=== PATIENT | female | born 2000 | race Caucasian/White ===

== ENCOUNTER 2022-07-11 14:18 | Emergency (ER) | payer MEDICAID ==
[~2022-07-11] VITALS: Ht 157.5 cm; Wt 43.1 kg
[2022-07-11 14:54] VITALS: BP_SYST 125
--- NOTE | 2022-07-11 14:59 | NUR ---
PT TRIAGED TO WR, INSTRUCTED TO NOTIFY RN WITH ANY CHANGES
--- NOTE | 2022-07-11 16:00 | NUR ---
ER Dr.DELA LAGUERRE at bedside examining patient.
[2022-07-11] MEDS ORDERED: KETOROLAC TROMETHAMINE 60 MG/2 ML VIAL IM ONE ×2 (17:00→19:47)
[2022-07-11 17:27] LABS: BASOPHILS # (AUTO) 0.1 K/uL (0.0-0.2); BASOPHILS % (AUTO) 1.2 % (0.0-2.0); EOSINOPHILS # (AUTO) 0.1 K/uL (0.0-0.4); EOSINOPHILS % (AUTO) 1.4 % (0.0-4.0); HEMATOCRIT 41.6 % (36-48); HEMOGLOBIN 14.3 g/dL (12.0-16.0); LYMPHOCYTES # (AUTO) 2.3 K/uL (1.0-5.5); LYMPHOCYTES % (AUTO) 34.6 % (20.5-51.5); MEAN CORPUSCULAR HEMOGLOBIN 30 pg (27-31); MEAN CORPUSCULAR HGB CONC 34 % (32-36); MEAN CORPUSCULAR VOLUME 89 fL (79.0-98.0); MONOCYTES # (AUTO) 0.9 K/uL (0.0-1.0); NEUTROPHILS # (AUTO) 3.3 K/uL (1.8-7.7); NEUTROPHILS % (AUTO) 49.8 % (40.0-70.0); PLATELET COUNT (AUTO) 301 K/uL (130-430); RED BLOOD CELL COUNT(AUTO) 4.69 MIL/uL (4.2-6.2); RED CELL DISTRIBUTION WIDTH 13.4 % (9.0-15.0); WHITE BLOOD COUNT (AUTO) 6.6 K/uL (4.8-10.8)
[2022-07-11 17:54] LABS: CALCIUM 9.2 mg/dL (8.4-11.0); CREATININE 0.68 mg/dL (0.55-1.30)
[2022-07-11 17:59] LABS: TOTAL BILIRUBIN 0.2 mg/dL (0.0-1.0)
[2022-07-11] MEDS ORDERED: ONDA-8 TL (19:02)
[2022-07-11] MEDS ORDERED: IBUP-1969 PO (19:02)
--- NOTE | 2022-07-11 19:56 | NUR ---
Patient given written and verbal discharge instructions and verbalizes understanding. ER MD discussed with patient the results and treatment provided. Patient in stable condition. ID arm band removed. Rx of given. Patient educated on pain management and to follow up with PMD. Pain Scale . Opportunity for questions provided and answered. Medication side effect fact sheet provided.
== END 2022-07-11 19:55 | disposition home or self-care (01) ==
LOC: SED 14:18
DX: R55 Syncope and collapse (principal); R42 Dizziness and giddiness; R56.9 Unspecified convulsions; R11.0 Nausea; Z79.899 Other long term (current) drug therapy
CPT/HCPCS: 99285; 70450; 80053; 85025; 84484; 36415; 93005; 76376; 81025; 96372; J1885

== ENCOUNTER 2023-07-01 17:02 | Emergency (ER) | payer MEDICAID ==
[~2023-07-01] VITALS: Ht 154.9 cm; Wt 45.4 kg
[~2023-07-01 17:02] MED LIST: IBUP-1969 PO; ONDA-8 TL
[2023-07-01 17:10] VITALS: BP_SYST 147; PULSE 109; RESP 18; TEMP 98.2; O2SAT 99
[2023-07-01 17:58] LABS: PROTHROMBIN TIME 10.4 SECS (9.5-12.5)
[2023-07-01 18:12] LABS: ALANINE AMINOTRANSFERASE 20 U/L (12-78); ALBUMIN 3.8 g/dL (3.4-4.8); ANION GAP 9 (5-15); ASPARTATE AMINOTRANSFERASE 12 U/L (10-37); CALCIUM 9.5 mg/dL (8.4-11.0); CARBON DIOXIDE 26 mmol/L (23-29); CHLORIDE 104 mmol/L (98-107); CREATININE 0.64 mg/dL (0.55-1.30); GFR AFRICAN AMERICAN 147 mL/min (>90); GFR NON AFRICAN-AMERICAN 121 mL/min (>90); GLUCOSE 101 mg/dL (74-106); POTASSIUM 3.3 mmol/L (3.5-5.1); SODIUM SERUM 139 mmol/L (136-145); TOTAL BILIRUBIN 0.1 mg/dL (0.0-1.0); TOTAL PROTEIN, SERUM 7.2 g/dL (6.4-8.3); UREA NITROGEN, BLOOD 12 mg/dL (8-21)
[2023-07-01 18:32] LABS: INFLUENZA TYPE A Negative (NEGATIVE); INFLUENZA TYPE B POSITIVE (NEGATIVE)
[2023-07-01] MEDS ORDERED: NABU-140 PO (18:59)
[2023-07-01 19:04] VITALS: BP_SYST 140; PULSE 90; RESP 16; TEMP 98.2; O2SAT 99
== END 2023-07-01 19:05 | disposition home or self-care (01) ==
LOC: SED 17:02
DX: R07.89 Other chest pain (principal); R05.9 Cough, unspecified; R09.81 Nasal congestion; J45.909 Unspecified asthma, uncomplicated; Z88.5 Allergy status to narcotic agent; Z79.899 Other long term (current) drug therapy; Z20.822 Contact with and (suspected) exposure to COVID-19
CPT/HCPCS: 36415; 71045; 80053; 84484; 85610-TC; 93005; 99285

== ENCOUNTER 2023-11-27 15:22 | Emergency (ER) | payer OTHER ==
[~2023-11-27] VITALS: Ht 157.5 cm; Wt 49.9 kg
[~2023-11-27 15:22] MED LIST changes: +NABU-140 PO; +PRENATAL VITS W CA FE FA PO; +Pyridoxine Hcl PO
[2023-11-27 15:33] VITALS: BP_SYST 118; PULSE 82; RESP 16; TEMP 98.2; O2SAT 98
[2023-11-27 16:18] LABS: BASOPHILS # (AUTO) 0.1 K/uL (0.0-0.2); BASOPHILS % (AUTO) 0.6 % (0.0-2.0); EOSINOPHILS # (AUTO) 0.3 K/uL (0.0-0.4); HEMOGLOBIN 12.7 g/dL (12.0-16.0); LYMPHOCYTES # (AUTO) 3.2 K/uL (1.0-5.5); LYMPHOCYTES % (AUTO) 22.1 % (20.5-51.5); MEAN CORPUSCULAR HEMOGLOBIN 30 pg (27-31); MEAN CORPUSCULAR HGB CONC 34 % (32-36); MEAN CORPUSCULAR VOLUME 89 fL (79.0-98.0); MONOCYTES # (AUTO) 0.7 K/uL (0.0-1.0); NEUTROPHILS # (AUTO) 10.1 K/uL (1.8-7.7); NEUTROPHILS % (AUTO) 70.3 % (40.0-70.0); PLATELET COUNT (AUTO) 435 K/uL (130-430); RED BLOOD CELL COUNT(AUTO) 4.18 MIL/uL (4.2-6.2); RED CELL DISTRIBUTION WIDTH 13.1 % (9.0-15.0); WHITE BLOOD COUNT (AUTO) 14.4 K/uL (4.8-10.8)
== END 2023-11-27 18:25 | disposition home or self-care (01) ==
LOC: SED 15:22
DX: O26.892 Other specified pregnancy related conditions, second trimester (principal); Z3A.21 21 weeks gestation of pregnancy; J45.909 Unspecified asthma, uncomplicated; Z88.5 Allergy status to narcotic agent; Z79.899 Other long term (current) drug therapy
CPT/HCPCS: 36415; 76815; 84702; 85025; 86900; 86901; 99284

== ENCOUNTER 2024-03-12 22:04 | Emergency (ER) | payer OTHER ==
[~2024-03-12] VITALS: Ht 154.9 cm; Wt 49.9 kg
[2024-03-12 23:09] VITALS: BP_SYST 109; PULSE 92; RESP 18; TEMP 98.3; O2SAT 100
[2024-03-12 23:59] LABS: BASOPHILS # (AUTO) 0.1 K/uL (0.0-0.2); BASOPHILS % (AUTO) 0.5 % (0.0-2.0); EOSINOPHILS # (AUTO) 0.1 K/uL (0.0-0.4); EOSINOPHILS % (AUTO) 0.7 % (0.0-4.0); HEMATOCRIT 24.9 % (36-48); HEMOGLOBIN 8.6 g/dL (12.0-16.0); LYMPHOCYTES # (AUTO) 4.8 K/uL (1.0-5.5); LYMPHOCYTES % (AUTO) 26.2 % (20.5-51.5); MEAN CORPUSCULAR HEMOGLOBIN 30 pg (27-31); MEAN CORPUSCULAR HGB CONC 34 % (32-36); MEAN CORPUSCULAR VOLUME 87 fL (79.0-98.0); MONOCYTES % (AUTO) 5.3 % (1.7-9.3); NEUTROPHILS # (AUTO) 12.2 K/uL (1.8-7.7); NEUTROPHILS % (AUTO) 67.3 % (40.0-70.0); PLATELET COUNT (AUTO) 330 K/uL (130-430); RED BLOOD CELL COUNT(AUTO) 2.87 MIL/uL (4.2-6.2); RED CELL DISTRIBUTION WIDTH 14.5 % (9.0-15.0); WHITE BLOOD COUNT (AUTO) 18.2 K/uL (4.8-10.8)
[2024-03-13 00:46] LABS: ALBUMIN 2.8 g/dL (3.4-4.8); BILIRUBIN,DIRECT 0.1 mg/dL (0.0-0.3); CREATININE 0.54 mg/dL (0.55-1.30); POTASSIUM 3.5 mmol/L (3.5-5.1); TOTAL BILIRUBIN 0.2 mg/dL (0.0-1.0); TOTAL PROTEIN, SERUM 6.5 g/dL (6.4-8.3)
== END 2024-03-13 01:05 | disposition left against medical advice (07) ==
LOC: SED 22:04
DX: O99.513 Diseases of the respiratory system complicating pregnancy, third trimester (principal); O46.93 Antepartum hemorrhage, unspecified, third trimester; R07.89 Other chest pain; J45.909 Unspecified asthma, uncomplicated; Z3A.35 35 weeks gestation of pregnancy; Z88.6 Allergy status to analgesic agent; Z79.899 Other long term (current) drug therapy; Z79.2 Long term (current) use of antibiotics
CPT/HCPCS: 36415; 80048; 80076; 83690; 84484; 85025; 99283